=== PATIENT | male | born 1970 | race Caucasian/White ===

== ENCOUNTER 2017-12-08 15:32 | Emergency (ER) | payer MEDICAID ==
[~2017-12-08] VITALS: Ht 167.6 cm; Wt 195.5 kg
[2017-12-08 15:41] VITALS: BP 155/95
[2017-12-08] MEDS ORDERED: LIDOcaine 1.5% w/epinephrine 1:200,000 5ml ampul IJ ONE (15:55)
[2017-12-08] MEDS ORDERED: TETanus/Pertussis (Acell)/Diphther VAC/PF (Tdap-Adult) 0.5ml syringe IM ONE (15:55)
== END 2017-12-08 16:56 | disposition left against medical advice (07) ==
LOC: ER 15:33
DX: S81.811A Laceration without foreign body, right lower leg, initial encounter (principal); Z88.2 Allergy status to sulfonamides; W16.712A Jumping or diving from boat striking water surface causing other injury, initial encounter; Y93.39 Activity, other involving climbing, rappelling and jumping off; Y92.89 Other specified places as the place of occurrence of the external cause; Y99.8 Other external cause status
CPT/HCPCS: 90471; 90715; 99284; J3490; A6449

== ENCOUNTER 2021-01-04 07:18 | Day surgery (SDC) | payer MEDICAID ==
[2021-01-04] VITALS (7 sets, daily range): BP systolic 121–165; BP diastolic 80–92
[~2021-01-04] VITALS: Ht 167.6 cm; Wt 110.9 kg
[~2021-01-04 07:18] MED LIST: BECL7.3A INH; CYCL-1 PO; HYDR-3972 PO; TIOT18CA3 INH; albuterol 2.5 MG/3 ML nebule NEB ONE; cefazolin/dext.iso 2gm/100ml IV ONE; famotidine 20mg tablet PO ONE; ringers solution, lacted 1,000 ML IV SCH; vancomycin 1,500 MG in NS 300ml IV soln IV ONE
[2021-01-04] MEDS ORDERED: HYDROcodone/acetaminophen 10/325mg tab PO ONE (08:45)
[2021-01-04 08:58] LABS: ALBUMIN 3.2 G/DL (3.4-5.0); ALKALINE PHOSPHATASE 51 IU/L (46-116); BLOOD UREA NITROGEN 10 MG/DL (7-18); BUN/CREATININE RATIO 16.7 (5.4-32.0); CALCIUM 8.4 MG/DL (8.5-10.1); CHLORIDE 106 MMOL/L (99-107); PRE OP ALT 12 U/L (30-65); PRE OP ANION GAP 6 (8-16); PRE OP AST 14 U/L (10-37); PRE OP BILIRUB, TOTAL 0.6 MG/DL (0.0-1.0); PRE OP GLUCOSE 102 MG/DL (70-104); PRE OP POTASSIUM 3.9 MMOL/L (3.4-5.1); PRE OP SODIUM 140 MMOL/L (135-145); TOTAL CARBON DIOXIDE 28.3 MMOL/L (24-32); TOTAL PROTEIN 6.5 G/DL (6.4-8.2); eGFR > 90 ML/MIN
[2021-01-04] MEDS ORDERED: BUPIVAcaine/PF 2.5 mg/ml (0.25%) 30ml vial ONE (09:03)
[2021-01-04] MEDS ORDERED: triamcinolone acetonide 40mg/ml inj ONE (09:03)
[2021-01-04 09:09] LABS: BASOPHILS # (AUTO) 0.1 X10'3 (0-0.2); BASOPHILS % (AUTO) 1.4 % (0-1); EOSINOPHILS # (AUTO) 0.4 X10'3 (0-0.9); EOSINOPHILS % (AUTO) 4.5 % (0-6); LYMPHOCYTES # (AUTO) 2.2 X10'3 (1.1-4.8); LYMPHOCYTES % (AUTO) 25.8 % (21-51); MEAN CORPUSCULAR HEMOGLOBIN 30.2 PG (27.0-31.0); MEAN CORPUSCULAR HGB CONC 34.4 g/dL (33.0-36.5); MEAN CORPUSCULAR VOLUME 87.9 FL (78-98); MEAN PLATELET VOLUME 8.7 FL (7.4-10.4); MONOCYTES # (AUTO) 0.9 X10'3 (0-0.9); MONOCYTES % (AUTO) 10.4 % (2-12); NEUTROPHILS # (AUTO) 4.8 X10'3 (1.8-7.7); NEUTROPHILS % (AUTO) 57.9 % (42-75); PRE OP HEMATOCRIT 41.8 % (42.0-52.0); PRE OP HEMOGLOBIN 14.4 g/dL (14.0-17.9); PRE OP PLATELET COUNT 201 X10'3 (140-440); RED BLOOD COUNT 4.76 X10'6 (4.70-6.10); RED CELL DISTRIBUTION WIDTH 13.8 % (11.5-14.5)
[2021-01-04] MEDS ORDERED: midazolam 1 mg/ML 2ml injection ONE (09:36)
[2021-01-04] MEDS ORDERED: fentaNYL /PF 50mcg/ml 5ml ampule ONE (09:36)
[2021-01-04] MEDS ORDERED: sevoflurane 250ml liquid IH ONE (09:42)
[2021-01-04] MEDS ORDERED: propofol inj 20 ML IV ONE (10:57)
--- NOTE | 2021-01-04 11:03 | NUR ---
Received from OR via [facility] , accompanied by Anesthesiologist SHERYL and report given by Anesthesiolgist. PATIENT WITH 20G PIVIN LEFT HAND RUNNING LR AT 100. DENIES PAIN. RIGHT KNEE CHINEDU WRAP DRESSING IS CDI. VSS. Addendum: 01/04/21 at 1111 by Rusty Zurita RN, RN Amended: Links added.
[2021-01-04] MEDS ORDERED: ringers solution, lacted 1,000 ML IV SCH (11:10)
[2021-01-04] MEDS ORDERED: ondansetron/PF 4mg/2ml inj IV PRN (11:10)
[2021-01-04] MEDS ORDERED: meperidine/PF 25mg/ml syringe IV PRN ×2 (11:10)
[2021-01-04] MEDS ORDERED: HYDROmorphone/PF 0.2 MG/ML SYRINGE IV PRN (11:10)
[2021-01-04] MEDS ORDERED: proCHLORperazine 10 MG/2 ml inj IV PRN (11:10)
[2021-01-04] MEDS: HYDROmorphone/PF 0.2 MG/ML SYRINGE IV PRN ×2 (11:19→11:36)
[2021-01-04] MEDS: meperidine/PF 25mg/ml syringe IV PRN ×2 (11:24→11:35)
== END 2021-01-04 11:43 | disposition home or self-care (01) ==
LOC: PAS 07:18
PROVIDERS: ATTEND Orthopaedic Surgery
DX: S83.231A Complex tear of medial meniscus, current injury, right knee, initial encounter (principal); S83.281A Other tear of lateral meniscus, current injury, right knee, initial encounter; M94.261 Chondromalacia, right knee; M17.0 Bilateral primary osteoarthritis of knee; I11.0 Hypertensive heart disease with heart failure; I50.9 Heart failure, unspecified; J44.9 Chronic obstructive pulmonary disease, unspecified; G89.4 Chronic pain syndrome; E66.01 Morbid (severe) obesity due to excess calories; Z68.41 Body mass index [BMI] 40.0-44.9, adult; G47.33 Obstructive sleep apnea (adult) (pediatric); Z98.890 Other specified postprocedural states; Z88.2 Allergy status to sulfonamides; Z79.01 Long term (current) use of anticoagulants; Z98.84 Bariatric surgery status; Z79.899 Other long term (current) drug therapy; Z87.891 Personal history of nicotine dependence; Z20.822 Contact with and (suspected) exposure to COVID-19; X58.XXXA Exposure to other specified factors, initial encounter; Y93.89 Activity, other specified; Y92.89 Other specified places as the place of occurrence of the external cause; Y99.8 Other external cause status
CPT/HCPCS: 29873; 29879; 29880; 36415; 80053; 82948; 85025; 87426; 94640; 94760; J1170; J2175; J2250; J2704; J3010; J3301; J3370; J3490; J7040; A4215; A4618; A6250; A6449; A7000; J7120